=== PATIENT | male | born 2005 | race Caucasian/White ===

== ENCOUNTER 2025-05-16 19:26 | Emergency (ER) | payer SELFPAY ==
[2025-05-16] MEDS: Bacitracin Oint 1 GM U/D Packet TOP ONE (20:45)
[2025-05-16] MEDS: Diphtheria,Pertussis(Acell),Tetanus Vaccine 0.5 ML Syringe IM ONE (20:46)
== END 2025-05-16 21:08 | disposition home or self-care (01) ==
LOC: JP.ED 19:26
DX: S00.35XA Superficial foreign body of nose, initial encounter (principal); Z23 Encounter for immunization; W45.8XXA Other foreign body or object entering through skin, initial encounter
CPT/HCPCS: 90471; 90715; 99283; J2003